=== PATIENT | female | born 1990 | race African-American/Black ===

== ENCOUNTER 2017-10-01 09:48 | Inpatient (IN) | payer OTHER ==
[~2017-10-01] VITALS: Ht 160 cm; Wt 99.7 kg
[~2017-10-01 09:48] MED LIST: AMOXICILLIN500 MG PO; CLEOCIN300 MG PO; DIFLUCAN150 MG PO; FLONASE16 G1 BOTH NARES; KLONOPIN0.5 M1 PO; LORTAB 5-325 M1 EACH PO; NAPROSYN500 MG PO; NEXPLANON68 MG SC; PRILOSEC20 MG PO; PROZAC10 MG PO; TOPROL XL6.25 MG PO
[2017-10-01 10:44] LABS: HEMATOCRIT 41.6 % (36.0-46.0); HEMOGLOBIN 13.3 G/DL (11.9-15.5); MCH 26.4 PG (29.0-34.0); MCV 82.5 FL (83-99); PLATELET COUNT 321 K/uL (156-360); RBC DIS.WIDTH-CV 14.4 % (11.8-14.6); RBC DIS.WIDTH-SD 43.5 % (39-53); RED BLOOD COUNT 5.04 M/uL (3.80-5.20); WHITE BLOOD COUNT 5.7 K/uL (4.1-10.2)
[2017-10-01 10:53] LABS: CHLORIDE 104 mEq/L (99-109); POTASSIUM 4.6 mEq/L (3.7-5.4); SODIUM 138 mEq/L (136-147)
[2017-10-01 10:55] LABS: GLUCOSE 93 mg/dL (70-99); TOTAL PROTEIN 8.3 g/dL (6.4-8.3)
[2017-10-01 10:57] LABS: TOTAL BILIRUBIN 0.4 mg/dL (0.0-1.0)
[2017-10-01 10:58] LABS: SERUM ETHYL ALCOHOL < 10 mg/dL
[2017-10-01 10:59] LABS: ALKALINE PHOSPHATASE 57 IU/L (3-129); CREATININE 0.8 mg/dL (0.6-1.3); GFR ESTIMATE (CALCULATED) > 59 mL/min/
[2017-10-01 11:00] LABS: AST (GOT) 19 IU/L (2-34); UREA NITROGEN (BUN) 6 mg/dL (9-23)
[2017-10-01 11:02] LABS: ALT (GPT) 19 IU/L (3-49)
[2017-10-01 11:03] LABS: APPEARANCE SL.HAZY ((CLEAR)); BILIRUBIN NEGATIVE; BLOOD MODERATE; COLOR STRAW ((YELLOW)); GLUCOSE (STRIP) NEGATIVE; KETONES NEGATIVE; LEUKOCYTES NEGATIVE; NITRITE NEGATIVE; PROTEIN (STRIP) NEGATIVE; SPECIFIC GRAVITY 1.005 (1.000-1.030); UROBILINOGEN 0.2 MG/DL (0.2-1.0)
[2017-10-01 11:05] LABS: BACTERIA RARE /HPF; EPITHELIAL CELLS 1+ /HPF; MUCUS TRACE /LPF; RED BLOOD CELLS 0-5 /HPF (0-5); UCUL ADDED? NO; WHITE BLOOD CELLS 0-5 /HPF (0-5)
[2017-10-01 11:12] LABS: QUANTITATIVE HCG < 4.0 MIU/ML
[2017-10-01 11:15] LABS: AMPHETAMINE NEGATIVE (500 ng/mL); BARBITURATES NEGATIVE (200 ng/mL); BENZODIAZEPINES NEGATIVE (150 ng/mL); BUPRENORPHINE NEGATIVE (10 ng/mL); COCAINE NEGATIVE (150 ng/mL); METHADONE NEGATIVE (200 ng/mL); METHAMPHETAMINE NEGATIVE (500 ng/mL); OPIATES (MORPHINE) NEGATIVE (100 ng/mL); OXYCODONE NEGATIVE (100 ng/mL); PHENCYCLIDINE NEGATIVE (25 ng/mL); PROPOXYPHENE NEGATIVE (300 ng/mL); THC CANNABINOIDS NEGATIVE (50 ng/mL); TRICYCLIC ANTIDEPRESSANTS NEGATIVE (300 ng/mL)
[2017-10-01 13:27] VITALS: BP 126/73
[2017-10-01 13:37] VITALS: BP 123/73
[2017-10-01] MEDS ORDERED: CELEXA10 MG PO (14:03)
[2017-10-01 15:23] VITALS: BP 110/54
[2017-10-02 07:23] VITALS: BP 120/71
[2017-10-02 15:36] VITALS: BP 122/67
[2017-10-03 07:52] VITALS: BP 115/69
[2017-10-03 15:23] VITALS: BP 121/67
[2017-10-04 07:35] VITALS: BP 124/60
[2017-10-04] MEDS ORDERED: CITALOPRAM HBR20 MG PO (08:57)
[2017-10-04] MEDS ORDERED: ZOLPIDEM TARTRAT5 MG PO (09:01)
== END 2017-10-04 11:06 | disposition home or self-care (01) | DRG 885 ==
LOC: EME 09:48 → 1WEST 12:08 → EDOF 12:08 → 1WEST 13:24 → ENRESERV 13:24 → 1WEST 10-04 11:06
PROVIDERS: Emergency Medicine
DX: F33.1 Major depressive disorder, recurrent, moderate (principal); R45.851 Suicidal ideations; F41.0 Panic disorder [episodic paroxysmal anxiety]; F41.1 Generalized anxiety disorder; F12.90 Cannabis use, unspecified, uncomplicated; S50.812A Abrasion of left forearm, initial encounter; G47.00 Insomnia, unspecified; Z68.38 Body mass index [BMI] 38.0-38.9, adult; J45.909 Unspecified asthma, uncomplicated; K21.9 Gastro-esophageal reflux disease without esophagitis; Z79.899 Other long term (current) drug therapy; Z81.8 Family history of other mental and behavioral disorders
CPT/HCPCS: 80053; 81003; 84702; 85027; 90839; 97150 GO; 97165 GO; 99281; 99285; G0480